=== PATIENT | male | born 1955 | race Caucasian/White ===

== ENCOUNTER 2020-12-20 16:02 | Inpatient (IN) ==
[2020-12-20] MEDS ORDERED: [UNRECOGNIZED DRUG - OTHER] PO SCH (22:00)
[2020-12-20] MEDS ORDERED: NON-FORMULARY MEDICATION 1 EACH EACH (Alendronate Sodium 70 MG Tablet) PO SCH (22:00)
[2020-12-20] MEDS ORDERED: ACETAMINOPHEN PO SCH (22:00)
[2020-12-20] MEDS ORDERED: IBUPROFEN PO SCH (22:00)
[2020-12-20] MEDS: tiZANidine 4 MG TABLET PO PRN (22:31)
[2020-12-21] MEDS: levETIRAcetam 250 MG TABLET PO SCH ×2 (05:56→17:11)
[2020-12-21 07:07] LABS: Basophils # 0.1 K/mcL (0.0-0.2); Basophils % 0.4 %; Eosinophils # 0.3 K/mcL (0.0-0.6); Eosinophils % 2.7 %; Hematocrit 26.9 % (37.5-50.1); Hemoglobin 9.4 g/dL (12.9-16.9); Immature Granulocytes % 0.4 % (0-4); Lymphocytes # 1.5 K/mcL (0.6-4.6); Lymphocytes % 12.9 %; Mean Corpuscular HGB Conc 34.9 g/dL (31.6-35.5); Mean Corpuscular Hemoglobin 34.1 pg (28.0-33.3); Mean Corpuscular Volume 97.5 fL (83.0-100.0); Mean Platelet Volume 9.9 fL (9.4-12.4); Monocytes # 1.2 K/mcL (0.0-1.3); Neutrophils # 8.2 K/mcL (1.6-8.9); Platelet Count 358 K/mcL (140-400); Red Blood Count 2.76 M/mcL (4.19-5.50); Red Cell Distribution Width 11.6 % (11.5-14.5); Segmented Neutrophils % 72.6 %; White Blood Count 11.3 K/mcL (4.3-11.1)
[2020-12-21 07:30] LABS: BUN/Creatinine Ratio 20 (6-26); Blood Urea Nitrogen 11 mg/dL (8-23); Calcium 10.8 mg/dL (8.6-10.3); Carbon Dioxide 29 mEq/L (23-29); Chloride 100 mEq/L (98-107); Glucose 95 mg/dL (70-105); Osmolality,Calculated 279 (280-300); Potassium 3.5 mEq/L (3.5-5.1); Sodium 135 mEq/L (136-145); eGFR For African Americans > 60 (> 60); eGFR For Non-African Americans > 60 (> 60)
[2020-12-21] MEDS: Thiamine (B-1) 100 MG TABLET PO SCH (07:48)
[2020-12-21] MEDS: Folic Acid 1 MG TABLET PO SCH (07:48)
[2020-12-21] MEDS: Multivit/Ca/Min/Fe/FA 1 TAB TABLET PO SCH (07:48)
[2020-12-21] MEDS: lisinopriL 5 MG TABLET PO SCH (07:48)
[2020-12-22] MEDS: levETIRAcetam 250 MG TABLET PO SCH ×2 (06:51→17:51)
[2020-12-22] MEDS: Thiamine (B-1) 100 MG TABLET PO SCH (08:53)
[2020-12-22] MEDS: Folic Acid 1 MG TABLET PO SCH (08:53)
[2020-12-22] MEDS: lisinopriL 5 MG TABLET PO SCH (08:54)
[2020-12-22] MEDS: Multivit/Ca/Min/Fe/FA 1 TAB TABLET PO SCH (08:54)
[2020-12-22] MEDS: Nicotine 21 MG PATCH.TD24 TD SCH (15:10)
[2020-12-22] MEDS: tiZANidine 4 MG TABLET PO PRN (15:11)
[2020-12-22] MEDS: Sennosides/Docusate Sodium TABLET PO SCH (21:15)
[2020-12-23] MEDS: levETIRAcetam 250 MG TABLET PO SCH ×2 (05:39→16:56)
[2020-12-23] MEDS: Thiamine (B-1) 100 MG TABLET PO SCH (08:40)
[2020-12-23] MEDS: Folic Acid 1 MG TABLET PO SCH (08:40)
[2020-12-23] MEDS: Multivit/Ca/Min/Fe/FA 1 TAB TABLET PO SCH (08:40)
[2020-12-23] MEDS: Sennosides/Docusate Sodium TABLET PO SCH ×2 (08:42→16:56)
[2020-12-23] MEDS: Nicotine 21 MG PATCH.TD24 TD SCH (08:43)
[2020-12-23] MEDS: lisinopriL 5 MG TABLET PO SCH (08:43)
[2020-12-23] MEDS: tiZANidine 4 MG TABLET PO PRN ×2 (08:51→20:13)
[2020-12-24] MEDS: levETIRAcetam 250 MG TABLET PO SCH ×2 (05:11→16:28)
[2020-12-24] MEDS: Nicotine 21 MG PATCH.TD24 TD SCH (08:39)
[2020-12-24] MEDS: Thiamine (B-1) 100 MG TABLET PO SCH (08:39)
[2020-12-24] MEDS: lisinopriL 5 MG TABLET PO SCH (08:39)
[2020-12-24] MEDS: Multivit/Ca/Min/Fe/FA 1 TAB TABLET PO SCH (08:39)
[2020-12-24] MEDS: Sennosides/Docusate Sodium TABLET PO SCH ×2 (08:39→19:44)
[2020-12-24] MEDS: Folic Acid 1 MG TABLET PO SCH (08:39)
[2020-12-24] MEDS ORDERED: Preparation H Ointment 57 GM TUBE RC PRN (10:16)
[2020-12-24] MEDS: tiZANidine 4 MG TABLET PO PRN (19:43)
[2020-12-25] MEDS: levETIRAcetam 250 MG TABLET PO SCH ×2 (05:28→18:19)
[2020-12-25] MEDS: Nicotine 21 MG PATCH.TD24 TD SCH (08:06)
[2020-12-25] MEDS: Multivit/Ca/Min/Fe/FA 1 TAB TABLET PO SCH (08:06)
[2020-12-25] MEDS: lisinopriL 5 MG TABLET PO SCH (08:06)
[2020-12-25] MEDS: Folic Acid 1 MG TABLET PO SCH (08:06)
[2020-12-25] MEDS: Thiamine (B-1) 100 MG TABLET PO SCH (08:07)
[2020-12-25] MEDS: tiZANidine 4 MG TABLET PO PRN ×2 (08:18→20:35)
[2020-12-25] MEDS: Sennosides/Docusate Sodium TABLET PO SCH ×2 (11:44→20:16)
[2020-12-26] MEDS: levETIRAcetam 250 MG TABLET PO SCH (05:27)
[2020-12-26 05:58] VITALS: BP 160/90
[2020-12-26] MEDS: lisinopriL 5 MG TABLET PO SCH (08:25)
[2020-12-26] MEDS: Sennosides/Docusate Sodium TABLET PO SCH (08:25)
[2020-12-26] MEDS: Multivit/Ca/Min/Fe/FA 1 TAB TABLET PO SCH (08:26)
[2020-12-26] MEDS: Nicotine 21 MG PATCH.TD24 TD SCH (08:26)
[2020-12-26] MEDS: Thiamine (B-1) 100 MG TABLET PO SCH (08:26)
[2020-12-26] MEDS: Folic Acid 1 MG TABLET PO SCH (08:26)
== END 2020-12-26 10:21 | disposition home or self-care (01) | DRG 559 ==
LOC: INPPIK 21:47
PROVIDERS: ADMIT Family Medicine; ATTEND Family Medicine